=== PATIENT | female | born 1960 | race Caucasian/White ===

== ENCOUNTER → 2021-08-29 | Day surgery (SDC) | payer OTHER ==
[~2021-08-29] VITALS: Ht 157.5 cm; Wt 68.0 kg
[~2021-08-29] MED LIST: AMITRIPTYLINE H10 MG PO; CELECOXIB200 MG PO; DIVIGEL1 EACH TOP; DULOXETINE HCL60 MG PO; ESCITALOPRAM OX10 MG PO; GABAPENTIN 100100 MG PO; GLUCOSAMINE CH1 EAC2 PO; HYDROXYCHLOROQ200 MG PO; MAG-OXIDE 400M400 MG PO; METOPROLOL SUCC25 MG PO; PROGESTERONE200 MG PO; ROSUVASTATIN CAL5 MG PO; VITAMIN B-121000 MC4 PO; VITAMIN D310 MC4 PO
== END | disposition home or self-care (01) ==
LOC: FAS 06:05
DX: M16.11 Unilateral primary osteoarthritis, right hip (principal); M70.61 Trochanteric bursitis, right hip; M70.41 Prepatellar bursitis, right knee
CPT/HCPCS: J1040; J2250; J2704; J7120; Q9967